=== PATIENT | male | born 1995 | race Caucasian/White ===

== ENCOUNTER 2025-06-18 18:33 | Emergency (ER) | payer SELFPAY ==
[2025-06-18] MEDS ORDERED: HYDROcodone/Acetaminophen 10/325 mg Tablet ONE (19:09)
[2025-06-18] MEDS ORDERED: predniSONE 20 MG TAB ONE (19:10)
== END 2025-06-18 19:18 | disposition home or self-care (01) ==
LOC: BURERS 18:33
DX: M54.50 Low back pain, unspecified (principal); F17.210 Nicotine dependence, cigarettes, uncomplicated; X50.0XXA Overexertion from strenuous movement or load, initial encounter
CPT/HCPCS: 99283; J7512